=== PATIENT | female | born 1980 | race Caucasian/White ===

== ENCOUNTER 2020-06-27 19:35 | Emergency (ER) | payer MEDICAID, SELFPAY ==
[2020-06-27 19:50] VITALS: BP 114/76; PULSE 84; RESP 16; TEMP 36.8; O2SAT 94; BMI 31.1
--- NOTE | 2020-06-27 20:23 | ED.EXTPRO ---
HPI - Extremity Problem General Chief complaint: Extremity Problem Stated complaint: PINKY TOE PAIN Time Seen by Provider: 06/27/20 20:19 Source: patient Mode of arrival: ambulatory Limitations: no limitations History of Present Illness HPI Narrative: Patient been complaining of pain in left 5th toe for last few days getting worse stress slight swelling and redness no injury or trauma was small blister there few days ago Related Data Previous Rx's Medication Instructions Recorded cephalexin 500 mg PO QID 7 Days #28 cap 06/27/20 doxycycline hyclate 100 mg PO BID #14 cap 06/27/20 Allergies Allergy/AdvReac Type Severity Reaction Status Date / Time No Known Allergies Allergy Verified 06/27/20 19:50 [No Known Allergies*] Review of Systems Review of Systems: Yes all other systems are reviewed and are negative [facility] Past Medical History Medical History No known health problems Social History Social History Advance Directives: No Advance Directives Information Provided: No Physical Exam Vital Signs: Vital Signs: Last Vital Signs Temp 98.2 F 06/27/20 19:50 Pulse 84 06/27/20 19:50 Resp 16 06/27/20 19:50 BP 114/76 06/27/20 19:50 Pulse Ox 94 06/27/20 19:50 Body Mass Index 31.1 Const: General: no acute distress Orientation/consciousness: patient oriented x3 Skin: Other: Erythema and swelling of left 5th toe Neuro: General: patient oriented x3 and no focal motor deficits Extrem: Ankle/foot/toe images: 1. Slight erythema with swelling of 4th interdigital space no pus discharge no deep infection MDM - Extremity (Nontraumatic) MDM Narrative Medical decision making narrative: Patient with Mild cellulitis of left 5th toe, part cleaned with iodine and Xeroform dressing was applied, will prescribe her doxycycline and Keflex. Discharge Plan Discharge Clinical Impression: Cellulitis Qualifiers: Site of cellulitis: extremity Site of cellulitis of extremity: lower extremity Laterality: left Qualified Code(s): L03.116 - Cellulitis of left lower limb Patient Disposition: Home, Self-Care Instructions: Cellulitis (ED) Additional Instructions: Keep your feet dry apply antibiotic ointment take antibiotics as advised. Report to the ER/PCP if worsening of swelling or redness Prescriptions: New doxycycline hyclate 100 mg capsule 100 mg PO BID Qty: 14 RF: 0 cephalexin 500 mg capsule 500 mg PO QID 7 Days Qty: 28 RF: 0
[2020-06-27] MEDS: cephALEXin 500 MG CAPSULE PO (21:15)
== END 2020-06-27 21:23 | disposition home or self-care (01) ==
PROVIDERS: Emergency Provider Internal Medicine
DX: L03.116 Cellulitis of left lower limb (principal); M79.675 Pain in left toe(s)
CPT/HCPCS: 99283

== ENCOUNTER 2020-11-04 20:15 | Emergency (ER) | payer MEDICAID, SELFPAY ==
[2020-11-04 20:29] VITALS: BP 158/102; PULSE 120; RESP 18; TEMP 36.9; O2SAT 100; BMI 30.2
[2020-11-04 20:42] LABS: Appearance Urine HAZY; Color Urine YELLOW; Glucose Urine UA NEG (NEG); Leukocyte Esterase Urine 1+ (NEG); Nitrite Urine POS (NEG); Specific Gravity - Urine 1.025 (1.005-1.025); UACC Culture Trigger YES; Urine Blood TRACE (NEG); Urine Ketones NEG (NEG); Urine Protein NEG (NEG-TRACE)
[2020-11-04 20:43] LABS: UPreg QC Valid YES; Urine Pregnancy NEGATIVE (NEGATIVE)
[2020-11-04 20:47] LABS: Bacteria Urine 4+ /LPF; RBC Urine 0-2 /HPF (0); Squamous Epithelial Cell Urine 2+ /LPF
--- NOTE | 2020-11-04 20:51 | PC.NURSE ---
This PCT was unable to draw CBC due to patient being uncooperative while attempting to draw blood.
--- NOTE | 2020-11-04 21:09 | PC.NURSE ---
Pt approached RN inquiring about length of time until she can be seen. Pt advised that this RN is awaiting results from lab work to determine if the patient requires to be seen in the [facility] or could be seen in [facility]. Pt verbalized
[2020-11-04 21:18] LABS: Alanine Aminotransferase 47 U/L (0-31); Albumin Level 4.4 g/dL (3.5-5.0); Alkaline Phosphatase 60 U/L (39-117); Anion Gap 15 (12-20); Aspartate Amino Transferase 32 U/L (5-31); Bilirubin Total 0.4 mg/dL (0.0-1.0); Blood Urea Nitrogen 15 mg/dL (9-16); Calcium 9.4 mg/dL (8.4-10.2); Carbon Dioxide 23 mmol/L (22-29); Chloride 104 mmol/L (96-108); Creatinine Clr Calc Pharmacy 80.8; Estimated Glomerular Filt Rate > 60; Glucose Random 107 mg/dL (60-115); Potassium 4.1 mmol/L (3.3-5.1); Sodium 138 mmol/L (135-145); Total Protein 7.7 g/dL (6.5-8.0)
--- NOTE | 2020-11-04 22:12 | ED_ITS ---
HPI - Female Genitourinary General Chief complaint: Urogenital-Female Stated complaint: uti? Time Seen by Provider: 11/04/20 21:56 Source: patient Mode of arrival: ambulatory Limitations: no limitations History of Present Illness MD elicited complaint: dysuria and UTI Pertinent past history: other (She reports she has had 1 UTI in the past) Onset (ago): week(s) (A little less than a week) Location of symptoms: vaginal Severity: moderate Female Urogenital Radiation: Non-Radiating Quality of pain: burning Consistency: constant and progressively worsening Vaginal discharge: none Vaginal bleeding: none Urinary symptoms: Dysuria, Urgency, Frequency and Hematuria Exacerbating factors: urination Relieving factors: none Associated symptoms: denies other symptoms Treatment prior to arrival: OTC urinary analgesics Sexual activity: Yes Patient : No Related Data Previous Rx's Medication Instructions Recorded cephalexin 500 mg capsule 500 mg PO QID 7 Days #28 cap 06/27/20 doxycycline hyclate 100 mg capsule 100 mg PO BID #14 cap 06/27/20 nitrofurantoin 100 mg PO BID 7 Days #14 cap 11/04/20 monohydrate/macrocrystals 100 mg capsule (Macrobid) Allergies Allergy/AdvReac Type Severity Reaction Status Date / Time No Known Allergies Allergy Verified 06/27/20 19:50 [No Known Allergies*] Review of Systems Review of Systems: Constitutional : No Fever, No Chills ENT/Mouth : No sore throat, No Rhinorrhea Eyes: No Eye Pain, No Redness Cardiovascular : No Chest Pain, No SOB Respiratory : No Cough, No Sputum, No Wheezing Gastrointestinal : No Nausea, No Vomiting, No Diarrhea, positive abdominal pain, Genitourinary : Positive dysuria/urinary frequency/urgency, No irregular bleeding, No pelvic pain, No vaginal discharge, no hematuria Musculoskeletal : No Myalgias Skin : No rash Neuro : No Weakness, No Headache Psych : No Anxiety/Panic, No Depression Heme/Lymph: No bruising, No Lymphadenopathy Endocrine : No Polyuria, No Polydipsia Yes all other systems are reviewed and are negative PMFSH Past Medical History Attestation statement: The following information was validated with the patient. Medical History No known health problems Social History Social History Advance Directives: No Advance Directives Information Provided: No Patient : No Physical Exam Vital Signs: Vital Signs: Last Vital Signs Temp 98.4 F 11/04/20 20:29 Pulse 120 H 11/04/20 20:29 Resp 18 11/04/20 20:29 BP 158/102 H 11/04/20 20:29 Pulse Ox 100 11/04/20 20:29 Body Mass Index 30.2 vital signs have been reviewed as normal and appeared to be correct. Blood pressure hypertensive 150/102 Heart rate tachycardic at 120. Respiration rate normal. Temperature normal. Oxygen saturation normal. Appearance: Alert. Oriented X3. No acute distress. Head: Normal external exam. Normocephalic. Atraumatic. Eyes: PERRLA. EOMI. Conjunctiva and sclera normal. Eyelids normal. ENT: Pharynx normal. Uvula midline. Moist mucous membranes. Neck: Normal inspection. Neck supple. FROM. No adenopathy. Thyroid Normal. No meningeal signs. No neck mass noted. CVS: Normal heart rate and rhythm. Heart sound normal. Pulses normal throughout. No murmurs/rales/gallops. Respiratory: No respiratory distress. Painless inspiration. Breath sounds normal. No wheezes/rales/rhonchi noted. Chest nontender. No accessory muscle usage noted or decreased air movement noted. Abdomen: Soft and nontender. Bowel sounds normal in all 4 quadrants. No distention noted. No organomegaly noted. No visible injury noted. Back: No CVA tenderness. Full range of motion noted. No rashes/lesion/induration/fluctuance or signs of infection noted. Skin: Skin warm and dry. Normal skin color. Normal skin turgor. No r ashes/lesions/lacerations noted. Extremities: Extremities exhibit normal range of motion. Extremities nontender. Neuro: Oriented X 3. No motor deficit. No sensory deficit. Reflexes normal. Normal steady gait. No focal neuro deficits noted. Course Course Course Narrative: 40-year-old female with a past medical history of UTI in the past presenting to the ED with complaints of dysuria/increased urinary urgency/frequency with resolved hematuria for the past few days less than a week. Reports she knows that she has UTI. Apparently patient was very anxious and she reports that she left her 95-year-old family member at home alone and she needs to get back home to her right away therefore she did not get a CBC done and she does not want a CBC done or any imaging done I explained to her t hat her blood pressure was high and her pulse was high and that she could have a kidney infection despite her kidney function being normal and she reports that she still wants to leave with antibiotics for UTI. Therefore explained to her to return in 24-48 hours if her symptoms worsen and to follow up her primary care provider in to take her antibiotics for her UTI. Patient understands agrees with this plan. MDM - Female Genitourinary Lab Data Result diagrams: 11/04/20 20:43 Labs: Lab Results 11/04/20 11/04/20 11/04/20 Range/Units 20:34 20:34 20:43 Sodium 138 (135-145) mmol/L Potassium 4.1 (3.3-5.1) mmol/L Chloride 104 (96-108) mmol/L Carbon Dioxide 23 (22-29) mmol/L Anion Gap 15 (12-20) BUN 15 (9-16) mg/dL Creatinine 0.86 (0.5-1.4) mg/dL Estim Creat Clear Calc 80.8 Estimated GFR > 60 Random Glucose 107 (60-115) mg/dL Calcium 9.4 (8.4-10.2) mg/dL Total Bilirubin 0.4 (0.0-1.0) mg/dL AST 32 H (5-31) U/L ALT 47 H (0-31) U/L Alkaline Phosphatase 60 (39-117) U/L Total Protein 7.7 (6.5-8.0) g/dL Albumin 4.4 (3.5-5.0) g/dL Urine Color YELLOW Urine Appearance HAZY Urine pH 6.0 (5.0-8.0) Ur Specific Gamaliel 1.025 (1.005-1.025) Urine Protein NEG (NEG-TRACE) MG/DL Urine Glucose (UA) NEG (NEG) MG/DL Urine Ketones NEG (NEG) MG/DL Urine Blood TRACE (NEG) Urine Nitrite POS H (NEG) Ur Leukocyte Esterase 1+ H (NEG) Urine RBC 0-2 (0) /HPF Urine WBC 15-29 H (0-4) /HPF Ur Squamous Epith Cells 2+ /LPF Urine Bacteria 4+ /LPF Urine Test NEGATIVE (NEGATIVE) Discharge Plan Discharge Clinical Impression: Urinary tract infection Patient Disposition: Home, Self-Care Instructions: Urinary Tract Infection in Women (ED) Prescriptions: New nitrofurantoin monohyd/m-cryst [Macrobid] 100 mg capsule 100 mg PO BID 7 Days Qty: 14 RF: 0 No Action doxycycline hyclate 100 mg capsule 100 mg PO BID Qty: 14 RF: 0 cephalexin 500 mg capsule 500 mg PO QID 7 Days Qty: 28 RF: 0 Referrals: Physician,None [Primary Care Provider] - 2 days (your pcp) Print Language: Pashto
== END 2020-11-04 22:23 | disposition home or self-care (01) ==
PROVIDERS: Emergency Provider Emergency Medicine Emergency Medical Services
DX: N39.0 Urinary tract infection, site not specified (principal); R00.0 Tachycardia, unspecified
CPT/HCPCS: 36415; 80053; 81001; 81025; 87086; 87088; 87186; 99283

== ENCOUNTER 2021-01-20 17:35 | Emergency (ER) | payer MEDICAID, SELFPAY | END 2021-01-20 20:36 | disposition left against medical advice (07) | PROVIDERS: Emergency Provider Emergency Medicine | DX: R05.9 Cough, unspecified (principal) ==